=== PATIENT | female | born 1960 | race Caucasian/White ===

== ENCOUNTER 2021-01-25 11:05 | Emergency (ER) | payer BC ==
[2021-01-25] MEDS ORDERED: Lisinopril 10 MG Tab PO ONE (11:34)
--- NOTE | 2021-01-25 11:40 | EDM.PDOC ---
ED HPI GENERAL MEDICAL PROBLEM - General Chief Complaint: Cardiovascular Problem Stated Complaint: HIGH BP Time Seen by Provider: 01/25/21 11:20 Source of Information: Reports: Patient History Limitations: Reports: No Limitations - History of Present Illness INITIAL COMMENTS - FREE TEXT/NARRATIVE: Shanda is a 60 year old female who presents to ER with concerns of high blood pressure. Has been having more issues with it as of late. WAs seen on Friday in [place] for same. States took her blood pressure at home that day and had elevated up to 200 systolic. Per records, was seen in the ER with a systolic of 180s by her arrival there, was given a Clonidine and discharge blood pressure was 161/92. Was started on Norvasc 5 mg daily in addition to her Lisinopril. Takes both in the am. Blood pressure over the last 2 days has been 130s-140s systolic and she has been feeling well. This am, took her pills at 0600. Started to feel a little dizzy and has a headache so checked blood pressure and was 180/88. Contacted her provider in [place] who recommended she be seen in the ER. She did take 2 aspirin at home around 1030. Denies chest pain or shortness of breath. No excess caffeine, nicotine or alcohol. Has remained active. No increased stressors as of late. Onset: Gradual Duration: Day(s):, Waxing/Waning Location: Reports: Head Quality: Reports: Ache Severity: Mild Associated Symptoms: Reports: Headaches. Denies: Confusion, Chest Pain, Cough, Fever/Chills, Loss of Appetite, Malaise, Nausea/Vomiting, Shortness of Breath, Weakness - Related Data Allergies Allergy/AdvReac Type Severity Reaction Status Date / Time Sulfa (Sulfonamide Allergy Cannot Verified 01/25/21 11:38 Antibiotics) Remember Home Meds: Home Meds amLODIPine [Norvasc] 5 mg PO DAILY 01/25/21 [History] lisinopriL [Lisinopril] 10 mg PO DAILY 01/25/21 [History] Past Medical History Cardiovascular History: Reports: Hypertension Respiratory History: Reports: COPD Social & Family History - Tobacco Use Tobacco Use Status *Q: Current Every Day Tobacco User ED ROS GENERAL - Review of Systems Review Of Systems: See Below Constitutional: Denies: Fever, Chills, Malaise, Weakness, Fatigue, Decreased Appetite HEENT: Reports: Vertigo. Denies: Ear Pain, Rhinitis, Sinus Problem, Throat Pain Respiratory: Denies: Shortness of Breath, Cough Cardiovascular: Denies: Chest Pain, Edema, Lightheadedness Endocrine: Denies: Fatigue GI/Abdominal: Denies: Abdominal Pain, Nausea, Vomiting : Reports: No Symptoms Musculoskeletal: Reports: No Symptoms Skin: Reports: No Symptoms Neurological: Reports: Dizziness, Headache. Denies: Syncope, Weakness ED EXAM, GENERAL - Physical Exam Exam: See Below Exam Limited By: No Limitations General Appearance: Alert, WD/WN, No Apparent Distress Ears: Normal External Exam, Normal TMs Nose: Normal Inspection, Normal Mucosa, No Blood Throat/Mouth: Normal Inspection, Normal Oropharynx Head: Normocephalic Neck: Normal Inspection, Supple, Non-Tender Respiratory/Chest: No Respiratory Distress, Lungs Clear, Normal Breath Sounds Cardiovascular: Normal Peripheral Pulses, Regular Rate, Rhythm, No Edema GI/Abdominal: Normal Bowel Sounds, Soft, Non-Tender Extremities: Normal Inspection, No Pedal Edema Neurological: Alert, Oriented Skin Exam: Warm, Dry Course - Vital Signs Last Recorded V/S: Last Vital Signs Temp 98.0 F 01/25/21 11:15 Pulse 81 01/25/21 11:15 Resp 20 01/25/21 11:15 BP 152/81 H 01/25/21 11:45 Pulse Ox 98 01/25/21 11:15 - Orders/Labs/Meds Meds: Medications Discontinued Medications Generic Name Dose Route Start Last Admin Trade Name Dawson PRN Reason Stop Dose Admin Lisinopril 10 mg 01/25/21 11:34 01/25/21 11:45 Lisinopril 10 Mg Tab PO 01/25/21 11:35 10 mg ONETIME ONE Administration - Re-Assessments/Exams Free Text/Narrative Re-Assessment/Exam: 01/25/21 12:16 Was given additional Lisinopril 10 mg. Blood pressure is 158/88 right now. Discussed options of control for her. Headache has improved. Departure - Departure Time of Disposition: 12:17 Disposition: Home, Self-Care 01 Condition: Good Clinical Impression: Hypertensive urgency Instructions: Hypertension, Adult Forms: ED Department Discharge Additional Instructions: 1. Continue Lisinopril 10 mg in am. If blood pressure normal upon awakening in am, take the usual 10 mg dose. If high, can take additional 10 mg at that time or any time through the day as needed. If needing second dose consistently, take 2 in am and start taking Amlodipine dose at night. 2. Keep log of blood pressures for review by your provider 3. Return if develop worsening headache, chest pain or shortness of breath 4. Follow up with primary care provider next week. Sepsis Event Note (ED) - Focused Exam Vital Signs: Vital Signs Temp Pulse Resp BP BP Pulse Ox 01/25/21 11:45 152/81 H 01/25/21 11:15 98.0 F 81 20 168/92 H 98
[2021-01-25 11:42] VITALS: PULSE 81
[2021-01-25 12:39] VITALS: BP 152/81
== END 2021-01-25 12:27 | disposition home or self-care (01) ==
LOC: VM.ED 11:05
DX: I16.0 Hypertensive urgency (principal); I10 Essential (primary) hypertension; J44.9 Chronic obstructive pulmonary disease, unspecified; Z79.899 Other long term (current) drug therapy; Z88.2 Allergy status to sulfonamides
CPT/HCPCS: 99283; A9270-GY